=== PATIENT | female | born 1960 | race Caucasian/White ===

== ENCOUNTER 2023-02-01 13:58 | Outpatient (CLI) | payer OTHER | END 2023-02-01 13:59 | disposition home or self-care (01) | LOC: CT 13:58 | PROVIDERS: ATTEND Specialist | DX: R09.81 Nasal congestion (principal) ==

== ENCOUNTER 2023-04-12 07:50 | Outpatient (CLI) | payer OTHER | END 2023-04-12 07:51 | disposition home or self-care (01) | LOC: NM 07:50 | PROVIDERS: ATTEND Internal Medicine Hematology & Oncology | DX: Z51.11 Encounter for antineoplastic chemotherapy (principal); C50.211 Malignant neoplasm of upper-inner quadrant of right female breast; C79.51 Secondary malignant neoplasm of bone; I34.0 Nonrheumatic mitral (valve) insufficiency; R93.7 Abnormal findings on diagnostic imaging of other parts of musculoskeletal system | CPT/HCPCS: 78306; 93306; A9503 ==